=== PATIENT | female | born 1960 | race African-American/Black ===

== ENCOUNTER 2016-09-02 05:25 | Observation (INO) | payer OTHER ==
--- NOTE | ~2016-09-02 | HP ---
History And Physical [id number] [place] [place]. [address] NAME: LAUREL MENENDEZ : 60 STATUS : ADM Linda PAT#: [id number] AGE: 56 ADM/REG DATE : 09/02/16 MR#: [id number] REPORT SERV DATE: 09/02/16 DICTATED BY: DATE: REPORT STATUS : Draft TRANSCRIBED BY: MODL DATE: 09/02/16 DATE OF ADMISSION: 09/02/2016 The patient is admitted to the [facility] Hospitalist Service. CHIEF COMPLAINT: Abdominal pain, diarrhea, nausea, vomiting. HISTORY OF PRESENT ILLNESS: Ms. 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 She reported feeling well and in her usual state of health until the afternoon of 08/31 when she developed some bilateral lower quadrant abdominal pain and cramping associated with loose stools. She thought it would go away and so she managed conservatively, although the diarrhea progressed and she had up to "20 watery bowel movements" yesterday. Her symptoms continued to progress overnight and into this morning with three episodes of nausea and vomiting. Essentially, the patient has been unable to keep down any food or fluid since Saturday morning. She came to the emergency department because she was feeling weak and dizzy. She also experienced one episode of chest tightness following an episode of vomiting. In the emergency department, she was evaluated by Dr. Harris Richardson and found to have leukocytosis, acute kidney injury, and CT scan suggesting long-segment colitis. The patient has thus been referred to the Hospitalist Service for admission and is presently in the clinical decision unit. On evaluation, she reports feeling nauseated, although this is improving somewhat with Phenergan. She continues to have abdominal pain "all over," but primarily in bilateral lower quadrants. She reports that nothing makes it better, and trying to drink fluids makes it worse. She has not had any bowel movements since admission to the clinical decision unit. She denies any fevers or chills. She denies any melena, hematochezia, or hematemesis. Reportedly, she had a colonoscopy two years ago done at the [facility], which was normal. She denies any sick contacts and denies any unusual food or fluid ingestions recently. REVIEW OF SYSTEMS: Full 14-point review of systems is negative, except as dictated in the history of present illness. PAST MEDICAL HISTORY: Includes: 1. Chronic low back pain due to multilevel degenerative disk disease and hypertrophic facet changes, the patient actually just underwent an outpatient MRI. 2. Hypertension, treated with lisinopril. 3. History of pancreatitis, felt alcohol induced. PAST SURGICAL HISTORY: Tubal ligation. History And Physical [address] [address] NAME: LAUREL MENENDEZ : 60 STATUS : ADM Linda PAT#: [id number] AGE: 56 ADM/REG DATE : 09/02/16 MR#: [id number] REPORT SERV DATE: 09/02/16 DICTATED BY: DATE: REPORT STATUS : Draft TRANSCRIBED BY: SHI DATE: 09/02/16 ALLERGIES: AMPICILLIN CAUSES HIVES. HOME MEDICATIONS: Include Tylenol with Codeine, hydrocodone, lisinopril. Dosages are currently unknown. SOCIAL HISTORY: The patient is . 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 She consumes occasional alcohol, but no longer daily and she has cut back since her hospitalization for pancreatitis two years ago. She denies the use of any tobacco or illicit substances. FAMILY HISTORY: Pertinent for ovarian cancer in either her grandmother or aunt, she is unsure. She reports that her mother is in good health. She does not know her father well, but met him recently and commented that he has had a partial tongue resection and has a tracheostomy. PHYSICAL EXAMINATION: VITAL SIGNS: Blood pressure 119/68, respiratory rate 16, oxygen saturation 100% on room air, pulse 69, and the patient is afebrile with temperature 97.8. GENERAL: This is a mildly obese female, in no acute distress. Alert and oriented in three dimensions. Pleasant. HEENT: Normocephalic and atraumatic. Pupils equally round and reactive to light. No icterus. No pallor. No sinus tenderness to palpation or nasal drainage. Oropharynx reveals dry and pink mucosa. No posterior pharyngeal erythema nor exudate. NECK: Supple. No jugular venous distention. No lymphadenopathy. No bruits. CARDIOVASCULAR: Regular rate and rhythm. No murmurs, rubs, or gallops. LUNGS: Clear to auscultation bilaterally. No wheezes, crackles, nor rhonchi. ABDOMEN: Soft. Diffusely tender to palpation with some voluntary guarding, but no rebound and no peritoneal signs. Decreased bowel sounds in four quadrants. Negative Salazar sign. No hepatosplenomegaly. EXTREMITIES: No cyanosis, clubbing, or edema. SKIN: Decreased skin turgor. No rash or skin breakdown. NEUROLOGIC: Cranial nerves 2 through 12 are tested and are intact. Sensation is intact to fine touch and temperature in all four limbs. Strength is 5/5 in bilateral upper and lower extremities. DATA: White blood cell count 18.5, hemoglobin 14.1, hematocrit 42, platelets 322. Procalcitonin pending. Sodium 139, potassium 4.4, chloride 109, bicarb 16, BUN 28, creatinine 2.8, glucose 165, calcium 10.8, total protein 10.6, albumin 5.4. Liver enzymes normal. Lipase 443. Troponin negative. Urinalysis showing hyaline casts and squamous epithelial cells, 9 white blood cells, and trace leukocyte esterase. IMAGIN. CT abdomen and pelvis without contrast shows long-segment diffuse colitis, extending from hepatic flexure to distal descending colon, most likely infectious or inflammatory. No underlying diverticulum. No pericolonic abscess. Normal small caliber appendix in the right upper pelvis. Contracted gallbladder, but no radiodense History And Physical [address] [address] NAME: LAUREL MENENDEZ : 60 STATUS : ADM Linda PAT#: [id number] AGE: 56 ADM/REG DATE : 09/02/16 MR#: [id number] REPORT SERV DATE: 09/02/16 DICTATED BY: DATE: REPORT STATUS : Draft TRANSCRIBED BY: MODL DATE: 09/02/16 gallstones or acute inflammatory changes. Small 2.1 cm left ovarian cyst, likely physiologic. 2. Acute abdominal series shows 4 mm calculus overlying the course of the right ureter, possible ureteral calculus. IMPRESSION: 1. Systemic inflammatory response syndrome due to colitis, possibly infectious versus ischemic due to hypotension. 2. Acute kidney injury, probable acute tubular necrosis and dehydration. 3. Associated electrolyte abnormalities, including hypercalcemia and metabolic acidosis. 4. Mild lipasemia, nonspecific, probably due to nausea and vomiting, and not recurrent pancreatitis. 5. History of chronic low back pain and narcotic dependence. 6. History of hypertension, with relative hypotension due to dehydration. PLAN: 1. Observation, admission to the clinical decision unit, attending Dr. Tyron Mckinley. 2. Check stool studies for C diff PCR, fecal white blood cell count, ova and parasites, Gram stain and culture, guaiacs. 3. IV fluids, symptom control with IV antiemetics and pain medications. 4. Clear liquid diet, advancing to a regular diet as tolerated. 5. Repeat morning labs to ensure normalization of acute kidney injury and electrolyte abnormalities with IV hydration. 6. If symptoms fail to improve with above measures, would consider a mesenteric Doppler ultrasound in the morning to rule out mesenteric stenosis as a cause of ischemic colitis and consider GI evaluation at that point. GERBER/SHI Tyron Mckinley M.D. / [id number] CC: Tyron Mckinley M.D.
--- NOTE | ~2016-09-02 | DS ---
Discharge Summary [facility] [address] [place] [place]. [address] NAME: LAUREL PERES : 60 STATUS : DIS Linda PAT#: [id number] AGE: 56 ADM/REG DATE : 09/02/16 MR#: [id number] REPORT SERV DATE: 09/05/16 DICTATED BY: DATE: REPORT STATUS : Draft TRANSCRIBED BY: MODL DATE: 09/03/16 ADMISSION DATE: 09/02/2016 DISCHARGE DATE: 09/03/2016 The patient was admitted to the [facility] Hospitalist Service. DISCHARGE DIAGNOSES: 1. Systemic inflammatory response syndrome due to colitis-suspect viral. 2. Acute kidney injury due to acute tubular necrosis and dehydration. 3. Lactic acidosis. 4. Mild lipasemia-suspect due to nausea and vomiting. 5. Chronic low back pain with extensive degenerative changes noted on recent MRI, for outpatient followup. 6. Mild anemia-stable, likely due to anemia of chronic disease. No evidence of GI losses this admission. IMAGIN. Acute abdominal series, 09/02, no acute cardiopulmonary disease. 4 mm calculus in the right ureter, possible ureteral calculus. 2. CT abdomen and pelvis, 09/02, long segment diffuse colitis extending from hepatic flexure to distal descending colon. No underlying diverticular disease. No pericolonic abscess. Normal small caliber appendix in the right upper pole. Contracted gallbladder. Small 2.1 cm left ovarian cyst likely physiologic. PERTINENT LABS: Blood cultures x2 negative. Stool cultures requested, but not obtained because the patient did not have any recurrence of diarrhea post admission. Initial bicarbonate level 16, 18 at discharge. Initial creatinine 2.8, 1.5 at discharge. Initial lactic acid 3.8, 0.8 at discharge. Liver enzymes normal. Lipase minimally elevated at 440. Troponin negative. Procalcitonin negative. Initial white blood cell count 18.5, 9.6 at discharge. Hemoglobin 10.6, platelets 217. Coagulation studies normal. Urinalysis is cloudy with trace protein, small bilirubin, no blood, 9 white cells, 32 squamous epithelial cells, and 12 hyaline casts. BRIEF HISTORY: For full details, please see the previously dictated history of present illness by myself on 09/02. 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 With this, she was becoming progressively weak and had a presyncopal episode as well as some chest tightness prior to admission. In the emergency department, she was found to have long segment colitis on CT scan with other associated lab abnormalities including leukocytosis, elevated creatinine, elevated lactic acid level, and metabolic acidosis. She was admitted in observation status to the clinical decision unit for further management. HOSPITAL COURSE: The patient was placed on supportive measures to include IV fluids, IV antiemetics, and IV pain medications. We attempted to collect stool studies, but patient's Discharge Summary [id number] [facility] [place]. [address] NAME: LAUREL PERES : 60 STATUS : DIS Linda PAT#: [id number] AGE: 56 ADM/REG DATE : 09/02/16 MR#: [id number] REPORT SERV DATE: 09/05/16 DICTATED BY: DATE: REPORT STATUS : Draft TRANSCRIBED BY: MODL DATE: 09/03/16 diarrhea resolved in the emergency department, and she did not have any recurrence of loose bowel movements in the hospital. Similarly, she had no recurrence of nausea or vomiting. Diet was advanced from clear liquids to regular diet during the hospitalization without recurrence of symptoms. Labs on the morning of 09/03 demonstrated normalization of white count, resolving metabolic acidosis, resolving lactic acidosis, and improvement in acute kidney injury. Of note, patient does take lisinopril as an outpatient and the etiology of acute kidney injury is most likely multifactorial due to acute tubular necrosis and dehydration. DISCHARGE DISPOSITION: The patient is discharged to home in the care of supportive family with no specific dietary restrictions. She was provided with a work note to return to full duty on 09/05. She needs to follow up with her primary care provider at the [facility] in one to two weeks, and patient will plan to ask her primary care provider for a referral to a spine doctor at that point. DISCHARGE MEDICATIONS: Include, 1. B12 500 mcg p.o. twice a day. 2. Vitamin D 50,000 international units p.o. weekly. 3. Neurontin 600 mg p.o. at bedtime p.r.n. 4. Topical Lidoderm patch. 5. Lisinopril 20 mg p.o. twice a day-patient instructed to hold until 09/06 and then to restart. 6. Thera-Gesic applied to the back three times a day as needed. 7. Robaxin 500 mg p.o. three times a day as needed. 8. Zoloft 100 mg p.o. daily. 9. Trazodone 100 mg p.o. at bedtime p.r.n. 10.Lortab 5/325 mg one tablet p.o. q.6 hours p.r.n.-60 tablets dispensed with no refills. 11.Zofran 8 mg p.o. q.8 hours p.r.n. nausea. DICTATED BY: Radha Bradford/SHI Tyron Mckinley M.D. / [id number] CC: Matthias Stokes MD
[2016-09-02 05:25] LABS: BASOPHILS 0.1 %; BASOPHILS ABSOLUTE 0.01 10/3/uL (0.0-0.16); EOSINOPHILS 0 %; IMMATURE GRANULOCYTES 0.4 %; IMMATURE GRANULOCYTES ABSOLUTE 0.07 10/3/uL (0.0-0.11); LYMPHOCYTES ABSOLUTE 1.29 10/3/uL (0.67-4.30); MEAN CORPUS HGB CONC 33.6 g/dL (32.0-36.0); MEAN CORPUSCULAR HEMOGLOB 33.1 pg (26.0-34.0); MEAN PLATELET VOLUME 10.8 fL (9.2-13.0); MONOCYTES 3.6 %; MONOCYTES ABSOLUTE 0.67 10/3/uL (0.21-1.20); NEUTROPHILS 88.9 %; NEUTROPHILS ABSOLUTE 16.42 10/3/uL (2.02-8.40); RBC DISTRIBUTION WIDTH 13.1 % (12.0-16.0)
[~2016-09-02 05:25] MED LIST: DIMENHY50I PO; NAP500 PO; NORCO1 TA1 PO; T3 PO; ZESTRIL20 MG PO
[2016-09-02 05:28] LABS: ER CBC TAT 0 Hrs 16 Mins; HEMOGLOBIN 14.1 g/dL (12.0-16.0); MANUAL DIFF NO %; MEAN CORPUSCULAR VOLUME 98.6 fL (80-100); PLATELET COUNT 322 10/3/uL (150-400); RED CELL COUNT 4.26 10/6/uL (4.0-5.6); WHITE BLOOD CELLS 18.5 10/3/uL (4.5-10.5)
[2016-09-02 05:35] LABS: CHLORIDE, SERUM 109 MMOL/L (96-112); POTASSIUM, SERUM 4.4 MMOL/L (3.5-5.3); SGOT(AST) 22 U/L (5-40); SGPT(ALT) 32 U/L (5-65); SODIUM, SERUM 139 MMOL/L (135-148); TOTAL BILIRUBIN 0.5 MG/DL (0-1.2); TROPONIN I <0.02 NG/ML (<0.05)
[2016-09-02 05:36] LABS: ALBUMIN 5.4 G/DL (3.5-5.0); ALKALINE PHOSPHATASE 77 U/L (45-117); BUN (BLOOD UREA NITROGEN) 28 MG/DL (6-23); CALCIUM, SERUM 10.8 MG/DL (8.5-10.4); CO2 (CARBON DIOXIDE) 16 MMOL/L (24-34); GFR AFRICAN AMERICAN 21 ML/MIN (>=60); GFR NON AFRICAN AMERICAN 18 ML/MIN (>=60); GLOBULIN 5.2 G/DL (2.5-4.1); GLUCOSE, SERUM 165 MG/DL (60-99); TOTAL PROTEIN 10.6 G/DL (6.0-8.5)
[2016-09-02 06:44] LABS: ASCORBIC ACID (UR NOT ORDER) NEG (NEG); BILIRUBIN, URINE SMALL (NEG); ER URINALYSIS TAT 0 Hrs 00 Mins; KETONE, URINE NEGATIVE (NEG); LEUKOCYTE ESTERASE(NOT OR TRACE (NEG); NITRITE (URINE) NEG (NEG); WBC (NOT ORDERED) (RFLEX) 9 (0-5)
[2016-09-02 12:10] LABS: PROCALCITONIN <0.05 ng/mL (<0.5)
[2016-09-02] MEDS ORDERED: T3 PO (17:07)
[2016-09-02] MEDS ORDERED: VITD PO (17:08)
[2016-09-02] MEDS ORDERED: B12250T PO (17:08)
[2016-09-02] MEDS ORDERED: LIDOCAINE 5% OINT TOP (17:09)
[2016-09-02] MEDS ORDERED: NEUR600 PO (17:09)
[2016-09-02] MEDS ORDERED: PRIN20 PO (17:10)
[2016-09-02] MEDS ORDERED: THERA-GESI1 TOP (17:10)
[2016-09-02] MEDS ORDERED: MOBIC15 MG PO (17:10)
[2016-09-02] MEDS ORDERED: METHOC500B PO (17:11)
[2016-09-02] MEDS ORDERED: TRAZ100 PO (17:12)
[2016-09-02] MEDS ORDERED: ZOL100 PO (17:12)
[2016-09-03 04:51] LABS: BASOPHILS 0.1 %; BASOPHILS ABSOLUTE 0.01 10/3/uL (0.0-0.16); EOSINOPHILS 0.2 %; EOSINOPHILS ABSOLUTE 0.02 10/3/uL (0.0-0.53); IMMATURE GRANULOCYTES 0.2 %; IMMATURE GRANULOCYTES ABSOLUTE 0.02 10/3/uL (0.0-0.11); LYMPHOCYTES ABSOLUTE 2.89 10/3/uL (0.67-4.30); MEAN CORPUS HGB CONC 32.7 g/dL (32.0-36.0); MEAN CORPUSCULAR HEMOGLOB 32.7 pg (26.0-34.0); MEAN PLATELET VOLUME 9.9 fL (9.2-13.0); MONOCYTES 6.6 %; MONOCYTES ABSOLUTE 0.64 10/3/uL (0.21-1.20); NEUTROPHILS 62.9 %; NEUTROPHILS ABSOLUTE 6.06 10/3/uL (2.02-8.40)
[2016-09-03 04:52] LABS: HEMATOCRIT 32.4 % (36.0-48.0); HEMOGLOBIN 10.6 g/dL (12.0-16.0); PLATELET COUNT 217 10/3/uL (150-400); RED CELL COUNT 3.24 10/6/uL (4.0-5.6); WHITE BLOOD CELLS 9.6 10/3/uL (4.5-10.5)
[2016-09-03 04:53] LABS: MANUAL DIFF NO %
[2016-09-03 05:04] LABS: BUN (BLOOD UREA NITROGEN) 30 MG/DL (6-23); CHLORIDE, SERUM 117 MMOL/L (96-112); CO2 (CARBON DIOXIDE) 18 MMOL/L (24-34); SODIUM, SERUM 138 MMOL/L (135-148)
[2016-09-03 05:05] LABS: CALCIUM, SERUM 8.6 MG/DL (8.5-10.4); CREATININE 1.54 MG/DL (0.55-1.02); GFR AFRICAN AMERICAN 43 ML/MIN (>=60); GFR NON AFRICAN AMERICAN 37 ML/MIN (>=60); GLUCOSE, SERUM 102 MG/DL (60-99)
[2016-09-03] MEDS ORDERED: NORCO1 TA1 PO (13:14)
[2016-09-03] MEDS ORDERED: ZOFRAN8 PO (13:14)
== END 2016-09-03 14:46 | disposition home or self-care (01) ==
LOC: ER 05:25 → CDU1 08:18
PROVIDERS: Hospitalist; Internal Medicine
DX: K52.9 Noninfective gastroenteritis and colitis, unspecified (principal); I10 Essential (primary) hypertension; N17.9 Acute kidney failure, unspecified; E86.0 Dehydration; E87.2 Acidosis; D64.9 Anemia, unspecified; Z79.899 Other long term (current) drug therapy; Z88.8 Allergy status to other drugs, medicaments and biological substances; Z98.51 Tubal ligation status
CPT/HCPCS: 74022; 74176; 80048; 80053; 81001; 83605; 83690; 83735; 84145; 84484; 85025; 87040; 87045; 87046; 87046-59; 87328; 87329; 87493; 87493-59; 87899; 87899-59; 89055; 93005; 96374; 96375; 96376; 99285; A9270-GY; C9113; G0378; J1170; J2405; J2550